=== PATIENT | female | born 1955 | race Caucasian/White ===

== ENCOUNTER 2016-10-01 05:44 | Emergency (ER) | payer OTHER ==
[~2016-10-01] VITALS: Wt 58.5 kg
[~2016-10-01 05:44] MED LIST: ACET325T45 PO; ALPR0.5T PO; CIPR500T4 PO; METR500T PO; OMEP20CA9 PO; PARO20TA58 PO
[2016-10-01] MEDS ORDERED: IBUP-1542 PO (06:34)
--- NOTE | 2016-10-01 06:44 | ERA ---
ER Documentation Chief Complaint Date/Time DATE: 10/01/16 TIME: 06:39 Chief Complaint whole body pain x3 weeks. No MD visit HPI Pleasant 60-year-old female presenting with a chief complaint of "my hands and bones feel brittle like they are going to break". Symptoms have been going on for more than 2 months. Has seen multiple doctors who have not done anything for her. Patient also states that she has mild right hip pain that is moderately controlled with Tylenol. Patient denies fever, chest pain, shortness of breath, headache. Denies past medical history. No recent travel. Vaccination status up-to-date. Patient has no other complaints and describes no other associated manifestations. Previous notes have been reviewed and are consistent with history given. ROS All systems reviewed and are negative except as per history of present illness. Medications Home Meds Active Scripts Ibuprofen* (Motrin*) 600 Mg Tab, 600 MG PO Q8, #30 TAB Prov:IRINEO ACOSTA PA-C 10/01/16 Acetaminophen* (Acetaminophen*) 325 Mg Tablet, 650 MG PO Q4H Y for PAIN AND OR ELEVATED TEMP for 10 Days, TAB Prov:PATRICIA MARTE F. 12/23/13 Omeprazole* (Prilosec*) 20 Mg Capsule.dr, 20 MG PO DAILY for 30 Days, CAP Prov:PATRICIA MARTE 12/23/13 Metronidazole* (Flagyl*) 500 Mg Tab, 500 MG PO Q8 for 4 Days Prov:PATRICIA MARTE 12/23/13 Ciprofloxacin Hcl* (Ciprofloxacin Hcl*) 500 Mg Tab, 500 MG PO BID@06,18 for 4 Days Prov:PATRICIA MARTE 12/23/13 Reported Medications Paroxetine Hcl* (Paxil*) 20 Mg Tablet, 20 MG PO DAILY, TAB 12/20/13 Alprazolam* (Xanax*) 0.5 Mg Tab, 0.5 MG PO QID, TAB 12/20/13 Allergies Allergies: Coded Allergies: No Known Allergy (Unverified , 12/20/13) PMhx/Soc History of Surgery: Yes (ONE , HEMORHOIDECTOMY) Anesthesia Reaction: No Hx Neurological Disorder: No Hx Respiratory Disorders: No Hx Cardiac Disorders: No Hx Psychiatric Problems: Yes (ANXIETY) Hx Miscellaneous Medical Probl: No Hx Alcohol Use: No Hx Substance Use: No Hx Tobacco Use: No Smoking Status: Never smoker Physical Exam Vitals Vital Signs Date Time Temp Pulse Resp B/P Pulse Ox O2 Delivery O2 Flow Rate FiO2 10/01/16 05:53 98.6 76 20 124/74 97 Physical Exam Const: Well-appearing 60-year-old female no acute distress Head: Atraumatic Eyes: Normal Conjunctiva. PERRLA. EOMI bilaterally. ENT: Normal External Ears, Nose and Mouth. Neck: Full range of motion..~ No meningismus. Resp: Clear to auscultation bilaterally Cardio: Regular rate and rhythm, no murmurs Abd: Soft, non tender, non distended. Normal bowel sounds Skin: No petechiae or rashes Back: No midline or flank tenderness Ext: Full range of motion. Nontender right and left hips. No cyanosis, or edema Neur: Awake and alert. Neurovascularly intact bilaterally. Psych: Normal Mood and Affect Procedures/MDM Otherwise healthy 60-year-old female presenting with a chief complaint of "brittle bones" as described in history and physical examination. Patient's most likely diagnosis is arthritis of the right hip versus pain due to unknown etiology. Patient is also worried about osteoporosis, thus I have referred her to follow-up with PCP for possible scans and chronic management. Outpatient treatment will consist of ibuprofen for symptomatic relief. I have spoke with the patient regarding their condition and future management. They have verbally responded that they understand their status and treatment plan. The patients vitals are stable, and their current condition is appropriate for discharge. The patient will be given discharge instructions with return precautions. Departure Diagnosis: Primary Impression: Arthritic-like pain Qualified Code: M25.50 - Arthralgia, unspecified joint Condition: Stable Patient Instructions: What Is Arthritis?, What Is Osteoporosis?, Preventing Osteoporosis: Meeting Your Calcium Needs, Living with Osteoporosis: Regular Exercise Referrals: CUAUHTEMOC BORJAS (PCP) Additional Instructions: Follow up with your PCP for a more thorough evaluation and a possible referral to a specialist. Return the the emergency department immediately if symptoms worsen or change. If you have any questions regarding medications, ask your pharmacist or us before you leave. If any adverse reactions occur while taking your medications, discontinue the treatment and return to the emergency department immediately. Take your medications as directed, and complete the entire course of treatment. IRINEO ACOSTA PA-C Oct 01, 2016 06:44
== END 2016-10-01 06:59 | disposition home or self-care (01) ==
LOC: FTE 05:44
DX: M25.551 Pain in right hip (principal)
CPT/HCPCS: 99283

== ENCOUNTER 2016-11-14 04:11 | Emergency (ER) | END 2016-11-14 06:12 | disposition home or self-care (01) | DX: M25.511 Pain in right shoulder (principal) | CPT/HCPCS: 72040; 73030; Z7610 ==

== ENCOUNTER 2017-03-11 06:07 | Emergency (ER) | END 2017-03-11 09:11 | disposition home or self-care (01) ==

== ENCOUNTER → 2017-08-26 | Outpatient (CLI) | END | disposition home or self-care (01) ==

== ENCOUNTER → 2017-09-28 | Outpatient (CLI) | END | disposition home or self-care (01) ==

== ENCOUNTER 2018-02-04 00:02 | Emergency (ER) | END 2018-02-04 02:03 | disposition home or self-care (01) ==

== ENCOUNTER 2018-07-02 00:56 | Emergency (ER) | payer OTHER ==
[~2018-07-02] VITALS: Ht 160 cm; Wt 55.0 kg
[~2018-07-02 00:56] MED LIST changes: -ACET325T45 PO; -ALPR0.5T PO; -CIPR500T4 PO; -METR500T PO; -OMEP20CA9 PO; +ONDA8TAB14 PO; -PARO20TA58 PO
[2018-07-02 01:02] VITALS: Ht 160 cm; Wt 55.0 kg
[2018-07-02] MEDS ORDERED: ONDANSETRON 4 MG INJ IV STA (01:47)
[2018-07-02] MEDS ORDERED: SOD CHLORIDE 0.9% 1,000 ML IV STA (01:47)
[2018-07-02] MEDS ORDERED: CEFTRIAXONE 1 GM/50 ML (PMX) 50 ML IVPB ONE (02:00)
[2018-07-02] MEDS ORDERED: IBUPROFEN 600 MG TAB PO ONE (02:00)
--- NOTE | 2018-07-02 03:09 | ERD ---
ER Documentation Chief Complaint Chief Complaint AP w/ n/v x1 day HPI This is a 62-year-old woman complaining of diffuse abdominal pain cramping, nausea, fever x1 day she denies vomiting or diarrhea, no blood per rectum or melena, no complaints of chest pain or shortness of breath. She denies dysuria or hematuria. Patient denies cough or sore throat, no URI symptoms, no recent travel or antibiotic use ROS All systems reviewed and are negative except as per history of present illness. Medications Home Meds Active Scripts Ondansetron (Ondansetron Odt) 8 Mg Tab.rapdis, 8 MG PO Q6H PRN for NAUSEA AND/OR VOMITING, #10 TAB Prov:SUNSHINE GATICA MD 02/04/18 Allergies Allergies: Coded Allergies: No Known Allergy (Unverified , 12/20/13) PMhx/Soc History of Surgery: Yes (HEMORRHOID REMOVAL ) Anesthesia Reaction: No Hx Neurological Disorder: No Hx Respiratory Disorders: No Hx Cardiac Disorders: Yes (HIGH CHOLESTEROL ) Hx Psychiatric Problems: No Hx Miscellaneous Medical Probl: Yes (had been admitted for problem in the intestine) Hx Alcohol Use: No Hx Substance Use: No Hx Tobacco Use: No Smoking Status: Never smoker FmHx Family History: No diabetes Physical Exam Vitals Vital Signs Date Temp Pulse Resp B/P (MAP) Pulse Ox O2 O2 Flow FiO2 Time Delivery Rate 07/02/18 101.0 71 18 124/87 97 Room Air 01:25 (99) 07/02/18 101.0 93 20 114/76 96 01:02 (89) Physical Exam GENERAL: Well-developed, well-nourished, well-hydrated, febrile, mild discomfort HEENT: Moist mucous membranes, pink conjunctiva, no cervical spine tenderness or step-off deformities, no goiter, no jaundice or icterus, extraocular movements intact without pain. No submandibular induration, and no pharyngeal erythema NEURO: Alert and oriented 3, cranial nerves II through XII intact bilaterally, pupils equal round reactive to light, no focal deficits or facial asymmetry, sensation intact distally Strength 5/5 in upper and lower extremities bilaterally CARDIAC: Regular rate and rhythm, no murmurs rubs or gallops LUNGS: Clear bilaterally no wheezing crackles or stridor ABDOMEN: Soft nontender, no guarding, no rigidity, no rebound, no psoas sign no obturator sign SKIN: Warm and dry to touch, no abrasions, contusions, or hematomas, no lacerations, no ecchymosis, no target lesions, and without ulcers EXTREMITIES: No clubbing cyanosis or edema, calves are bilaterally symmetrical, no Homans sign, no popliteal cord sign. Distal pulses equal and bilateral PSYCH: Normal affect without agitation or irritability Result Diagram: 07/02/18 0156 07/02/18 0156 Results 24 hrs Laboratory Tests Test 07/02/18 01:56 White Blood Count 5.9 10^3/ul Red Blood Count 4.74 10^6/ul Hemoglobin 13.6 g/dl Hematocrit 41.7 % Mean Corpuscular Volume 88.0 fl Mean Corpuscular Hemoglobin 28.7 pg Mean Corpuscular Hemoglobin Concent 32.6 g/dl Red Cell Distribution Width 13.0 % Platelet Count 234 10^3/UL Mean Platelet Volume 10.4 fl Immature Granulocytes % 0.200 % Neutrophils % 76.6 % Lymphocytes % 16.1 % Monocytes % 6.6 % Eosinophils % 0.3 % Basophils % 0.2 % Nucleated Red Blood Cells % 0.0 /100WBC Immature Granulocytes # 0.010 10^3/ul Neutrophils # 4.5 10^3/ul Lymphocytes # 1.0 10^3/ul Monocytes # 0.4 10^3/ul Eosinophils # 0.0 10^3/ul Basophils # 0.0 10^3/ul Nucleated Red Blood Cells # 0.0 10^3/ul Prothrombin Time 12.3 Sec Prothrombin Time Ratio 1.0 INR International Normalized Ratio 0.90 Activated Partial Thromboplast Time 27.6 Sec Urine Color YELLOW Urine Clarity SLIGHTLY CLOUDY Urine pH 6.0 Urine Specific [place] 1.023 Urine Ketones 1+ mg/dL Urine Nitrite NEGATIVE mg/dL Urine Bilirubin NEGATIVE mg/dL Urine Urobilinogen 1+ mg/dL Urine Leukocyte Esterase TRACE [place]/ul Urine Microscopic RBC 2 /HPF Urine Microscopic WBC 6 /HPF Urine Mucus MODERATE /HPF Urine Hemoglobin NEGATIVE mg/dL Urine Glucose NEGATIVE mg/dL Urine Total Protein NEGATIVE mg/dl Sodium Level 140 mmol/L Potassium Level 3.7 mmol/L Chloride Level 104 mmol/L Carbon Dioxide Level 27 mmol/L Anion Gap 9 Blood Urea Nitrogen 17 mg/dl Creatinine 0.65 mg/dl Est Glomerular Filtrat Rate mL/min > 60 mL/min Glucose Level 113 mg/dl Calcium Level 9.4 mg/dl Total Bilirubin 1.3 mg/dl Direct Bilirubin 0.00 mg/dl Indirect Bilirubin 1.3 mg/dl Aspartate Amino Transf (AST/SGOT) 28 IU/L Alanine Aminotransferase (ALT/SGPT) 28 IU/L Alkaline Phosphatase 78 IU/L Total Protein 7.1 g/dl Albumin 4.0 g/dl Globulin 3.10 g/dl Albumin/Globulin Ratio 1.29 Lipase 117 U/L Current Medications Medications Dose Sig/Rosa Start Time Status Last (Trade) Ordered Route PRN Stop Time Admin Dose Reason Admin Ibuprofen 600 mg ONCE ONCE 07/02/18 DC 07/02/18 (Motrin) PO 02:00 07/02/18 02:05 02:01 Sodium 1,000 ml @ Q1H STAT 07/02/18 DC 07/02/18 Chloride 1,000 mls/hr IV 01:47 07/02/18 02:06 02:46 Ondansetron 4 mg ONCE STAT 07/02/18 DC 07/02/18 HCl (Zofran IV 01:47 07/02/18 02:05 Inj) 01:50 Ceftriaxone 50 ml @ ONCE ONCE 07/02/18 DC 07/02/18 Sodium 100 mls/hr IVPB 02:00 07/02/18 02:06 02:29 Procedures/MDM IV line was established 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 Patient was afebrile I administered 1 L normal saline IV, ibuprofen 600 mg p.o. x1, Zofran 4 mg IV, ceftriaxone 1 g IV. I do not suspect sepsis. CBC and electrolytes are normal, liver function tests were normal, urinalysis was positive for early infection CT scan of the abdomen pelvis was performed,IMPRESSION: No definite acute abnormality of the abdomen or pelvis. Fecal filled colon. I told the patient to return in 8 to 12 hours for repeat abdominal examination and reevaluation although I suspect early UTI and will treat her with oral antibiotics Differential diagnoses considered, included but not limited to acute coronary syndrome, pulmonary embolism, aortic dissection, abdominal aortic aneurysm, sepsis, stroke, meningitis, encephalitis, pneumonia, appendicitis, cholecy stitis, bowel obstruction, pyelonephritis, nephrolithiasis, cystitis, as well as metabolic, hematologic, and electrolyte abnormalities. As well as abscess, cellulitis, fractures, and dislocations. Patient feels much better at this time, and vital signs are normal, symptoms have improved. I did give strict instructions to return to the ED if symptoms continue or worsen, patient will otherwise follow-up with primary care physician. Patient understood instructions and agreed to plan. Disclaimer: Inadvertent spelling and grammatical errors are likely due to EHR/dictation software use and do not reflect on the overall quality of patient care. Also, please note that the electronic time recorded on this note does not necessarily reflect the actual time of the patient encounter. Departure Diagnosis: Primary Impression: Abdominal pain Abdominal location: generalized Qualified Codes: R10.84 - Generalized abdominal pain Additional Impressions: Fever Fever type: unspecified Qualified Codes: R50.9 - Fever, unspecified Acute UTI Condition: SUNSHINE Kaufman MD July 02, 2018 03:09
[2018-07-02] MEDS ORDERED: CEPH500C PO (03:53)
[2018-07-02] MEDS ORDERED: IBUP-1542 PO (03:53)
[2018-07-02 04:29] VITALS: BP 110/70; PULSE 74; RESP 16
== END 2018-07-02 04:30 | disposition home or self-care (01) ==
LOC: E/R 00:56
DX: N39.0 Urinary tract infection, site not specified (principal)
CPT/HCPCS: 36415; 74176; 80053; 81001; 83690; 85025; 85610; 85730; 87040; 87086; 96374; 96375; J0696; J2405; J7030; Z7502; Z7610